=== PATIENT | male | born 1960 | race Caucasian/White ===

== ENCOUNTER 2018-02-16 10:24 | Emergency (ER) | payer OTHER ==
[2018-02-16 10:40] VITALS: TEMP 97.4; BMI 25.7
--- NOTE | 2018-02-16 11:01 | PDOC ---
History of Present Illness - History of Present Illness Initial Comments: This is a 57 year old male, with no significant PMH, who presents to the emergency department today complaining of dizziness for 3 days. Patient describes his dizziness as a room spinning sensation. He states that his symptoms are exacerbated with lateral head movements. Patient also complains of associated forehead and nasal pain. He denies having any trouble walking. Patient denies sinusitis. The patient denies chest pain, shortness of breath, headache and dizziness. Denies fever, chills, nausea, vomit, diarrhea and constipation. Denies dysuria, frequency, urgency and hematuria. Allergies: NKA Past surgical history: Appendectomy (2000) Social history: No reported PCP: None noted 02/16/18 12:03 <Ana Bowser - Last Filed: 02/16/18 14:16> - General History Source: Patient Exam Limitations: No Limitations <Lynn Gil - Last Filed: 02/16/18 15:10> - General Chief Complaint: Lightheaded Stated Complaint: dizziness/nausea Time Seen by Provider: 02/16/18 10:59 Past History <Ana Bowser - Last Filed: 02/16/18 14:16> - Past Medical History COPD: No - Suicide/Smoking/Psychosocial Hx Smoking History: Never smoked Have you smoked in the past 12 months: No Information on smoking cessation initiated: No Hx Alcohol Use: No Drug/Substance Use Hx: No Substance Use Type: None <Lynn Gil - Last Filed: 02/16/18 15:10> - Past Medical History Allergies/Adverse Reactions: Allergies Allergy/AdvReac Type Severity Reaction Status Date / Time No Known Allergies Allergy Verified 02/16/18 10:40 Home Medications: Ambulatory Orders Meclizine HCl [Antivert -] 25 mg PO TID #21 tablet 02/16/18 Review of Systems - Review of Systems Comments:: GENERAL/CONSTITUTIONAL: No fever or chills. No weakness. HEAD, EYES, EARS, NOSE AND THROAT: +Forehead pain. +Nasal pain. No change in vision. No ear pain or discharge. No sore throat. CARDIOVASCULAR: No chest pain or shortness of breath. RESPIRATORY: No cough, wheezing, or hemoptysis. GASTROINTESTINAL: No nausea, vomiting, diarrhea or constipation. GENITOURINARY: No dysuria, frequency, or change in urination. MUSCULOSKELETAL: No joint or muscle swelling or pain. No neck or back pain. SKIN: No rash NEUROLOGIC: +Room spinning dizziness. No headache, vertigo, loss of consciousness, or change in strength/sensation. ENDOCRINE: No increased thirst. No abnormal weight change. HEMATOLOGIC/LYMPHATIC: No anemia, easy bleeding, or history of blood clots. ALLERGIC/IMMUNOLOGIC: No hives or skin allergy. 02/16/18 12:03 <Ana Bowser - Last Filed: 02/16/18 14:16> *Physical Exam - Vital Signs Last Vital Signs Temp Pulse Resp BP Pulse Ox 97.4 F L 63 16 138/72 100 02/16/18 10:37 02/16/18 10:37 02/16/18 10:37 02/16/18 10:37 02/16/18 10:37 - Physical Exam Comments: GENERAL: The patient is in no acute distress. HEAD: Normal with no signs of trauma. EYES: +Horizontal nystagmus. PERRLA, EOMI, sclera anicteric, conjunctiva clear. ENT: Ears normal, nares patent, oropharynx clear without exudates. Moist mucous membranes. NECK: Normal range of motion, supple without lymphadenopathy, JVD, or masses. LUNGS: Breath sounds equal, clear to auscultation bilaterally. No wheezes, and no crackles. HEART:Regular rate and rhythm, normal S1 and S2 without murmur, rub or gallop. ABDOMEN: Soft, nontender, normoactive bowel sounds. No guarding, no rebound. No masses palpable. EXTREMITIES: Normal range of motion, no edema. No clubbing or cyanosis. No erythema, or tenderness. NEUROLOGICAL: Cranial nerves II through XII grossly intact. Normal speech. No focal neurological deficits. MUSCULOSKELETAL: Back non-tender to palpation, no CVA tenderness SKIN: Warm, Dry, normal turgor, no rashes or lesions noted. 02/16/18 12:18 <Ana Bowser - Last Filed: 02/16/18 14:16> - Vital Signs Last Vital Signs Temp Pulse Resp BP Pulse Ox 97.4 F L 63 16 138/72 100 02/16/18 10:37 02/16/18 10:37 02/16/18 10:37 02/16/18 10:37 02/16/18 10:37 <Lynn Gil - Last Filed: 02/16/18 15:10> Moderate Sedation - Procedure Monitoring Vital Signs: Procedure Monitoring Vital Signs Temperature 97.4 F L 02/16/18 10:37 Pulse Rate 63 02/16/18 10:37 Respiratory Rate 16 02/16/18 10:37 Blood Pressure 138/72 02/16/18 10:37 O2 Sat by Pulse Oximetry (%) 100 02/16/18 10:37 <Ana Bowser - Last Filed: 02/16/18 14:16> - Procedure Monitoring Vital Signs: Procedure Monitoring Vital Signs Temperature 97.4 F L 02/16/18 10:37 Pulse Rate 63 02/16/18 10:37 Respiratory Rate 16 02/16/18 10:37 Blood Pressure 138/72 02/16/18 10:37 O2 Sat by Pulse Oximetry (%) 100 02/16/18 10:37 <Lynn Gil - Last Filed: 02/16/18 15:10> ED Treatment Course - LABORATORY CBC & Chemistry Diagram: 02/16/18 11:16 02/16/18 11:16 - RADIOLOGY Radiograph Interpretation: RAD/CHEST X-RAY Impression : No acute chest pathology Reported By: Ebenezer Goodwin MD 02/16/18 12:03 CT/HEAD CT WITHOUT CONTRAST IMPRESSION: Mild ventricular dilatation which is nonspecific. No gross acute intracranial pathology is identified. Correlate clinically for further evaluation and follow-up Mild ethmoid chronic sinusitis Reported By: Deisi Bustos MD 02/16/18 13:09 02/16/18 13:06 <Ana Bowser - Last Filed: 02/16/18 14:16> - LABORATORY CBC & Chemistry Diagram: 02/16/18 11:16 02/16/18 11:16 <Lynn Gil - Last Filed: 02/16/18 15:10> Medical Decision Making - Medical Decision Making 02/16/18 14:18 A portion of this note was documented by scribe services under my direction. I have reviewed the details of the note, within reason, and agree with the documentation with the following case summary and management plan written by me. Nursing documentation reviewed and incorporated into medical decision making Mr Thornton is 57 yo M who presents to the ER with a complaint of vertigo no head trauma Present for the past 3 days He awoke with these symptoms No tinnitus No focal weakness or numbness He is ambulatory with a steady gait NEURO: Mental status: The patient is oriented x3. Cranial nerves: Cranial nerves II through XII are intact Motor: The upper extremities are 5 over 5 in all muscle groups. The lower extremities are 5 over 5 in all muscle groups. Sensation: Sensation is intact to light touch throughout. Cerebellar: [id number]-opnqbo-lhop is normal in both upper extremities. Heel-knee- mauro is normal in both lower extremities. Gait: Normal. Heel and toe walking are normal. Tandem gait is normal. 02/16/18 14:21 Laboratory Tests 02/16/18 02/16/18 02/16/18 11:16 11:16 11:16 WBC 5.2 Hgb 16.0 Hct 45.3 Plt Count 220 INR 0.94 BUN 19 H Creatinine 0.8 Creatine Kinase 110 Troponin I < 0.02 EKG - NSR rate of 58 bpm, axis nml, intervals nml, no st elevations or depression CT head : chronic sinusitis Given Meclizine Will discharge to home 02/16/18 15:09 <Lynn Gil - Last Filed: 02/16/18 15:10> *DC/Admit/Observation/Transfer - Attestations Scribe Attestion: 02/16/18 12:04 Documentation prepared by AGUILA Flores, acting as medical records receptionist for AGUILA Flores MD. <Ana Bowser - Last Filed: 02/16/18 14:16> - Discharge Dispostion Decision to Admit order: No <Lynn Gil - Last Filed: 02/16/18 15:10> Diagnosis at time of Disposition: Vertigo - Discharge Dispostion Disposition: HOME Condition at time of disposition: Stable - Prescriptions Prescriptions: Meclizine HCl [Antivert -] 25 mg PO TID #21 tablet - Patient Instructions Printed Discharge Instructions: Vertigo (Alternative Therapy), DI for Benign Paroxysmal Positional Vertigo Additional Instructions: Thank you for coming in to the ER today Please be sure to follow up with your primary care physician within 2-3 days Please take medications as prescribed Return to the ER for any other concerns or complaints
[2018-02-16] MEDS ORDERED: MECLIZINE HCL 25 MG TABLET (FP) PO ONE (11:50)
[2018-02-16] MEDS ORDERED: MECLIZINE HCL 25 MG TABLET (FP) ONE (12:06)
[2018-02-16 12:21] LABS: BASO % 0.7 % (0-2.0); EOS % 2.3 % (0-4.5); HEMATOCRIT 45.3 % (35.4-49); LYMPH % 21.3 % (8-40); MCHC 35.3 g/dl (32.0-35.9); MEAN CELL VOLUME 87.9 fl (80-96); MONO % 8.7 % (3.8-10.2); PLATELET COUNT 220 K/MM3 (134-434); RBC 5.15 M/mm3 (4.00-5.60); RDW 13.6 % (11.9-15.9); WHITE BLOOD COUNT 5.2 K/mm3 (4.0-10.0)
[2018-02-16 12:33] LABS: INR 0.94 (0.83-1.09); PROTHROMBIN TIME (PATIENT) 11.1 SEC (9.7-13.0)
[2018-02-16 13:30] LABS: ALBUMIN 3.9 g/dl (3.4-5.0); ALK PHOS 64 U/L (45-117); ANION GAP 7 MMOL/L (8-16); BILIRUBIN,TOTAL 0.7 mg/dL (0.2-1); BLOOD UREA NITROGEN 19 mg/dL (7-18); CALCIUM 8.8 mg/dL (8.5-10.1); CHLORIDE 104 mmol/L (98-107); CO2 27 mmol/L (21-32); CREATININE 0.8 mg/dL (0.55-1.3); GLUCOSE,RANDOM 84 mg/dL (74-106); MAGNESIUM 2.1 mg/dL (1.8-2.4); POTASSIUM 4.2 mmol/L (3.5-5.1); SGOT/AST 34 U/L (15-37); SGPT/ALT 81 U/L (13-61); SODIUM 138 mmol/L (136-145); TOT PROT 7.4 g/dl (6.4-8.2)
--- NOTE | 2018-02-16 15:06 | EKG ---
Test Reason : Blood Pressure : / mmHG Vent. Rate : 058 BPM Atrial Rate : 058 BPM P-R Int : 178 ms QRS Dur : 068 ms QT Int : 388 ms P-R-T Axes : 058 036 039 degrees QTc Int : 380 ms SINUS BRADYCARDIA POSSIBLE LEFT ATRIAL ENLARGEMENT BORDERLINE ECG NO PREVIOUS ECGS AVAILABLE Confirmed by TOMEKA LAZARO, KIMBERLY ([id number]) on 02/16/2018 3:05:50 PM Referred By: Confirmed By:KIMBERLY ECKERT MD
[2018-02-16 15:36] VITALS: BP 103/78; PULSE 68
== END 2018-02-16 15:47 | disposition home or self-care (01) ==
LOC: JER 10:24
DX: R42 Dizziness and giddiness (principal)
CPT/HCPCS: 36415; 70450-TC; 71045-TC-FY; 80053; 82550; 83735; 84484; 85025; 85610; 93005; 93010; 99282-25